=== PATIENT | male | born 1980 | race Caucasian/White ===

== ENCOUNTER 2023-02-15 14:53 | Emergency (ER) | payer OTHER, BC ==
[2023-02-15] MEDS ORDERED: Diphtheria,Pertussis(Acell),Tetanus Vaccine 0.5 ML Syringe IM ONE (16:09)
== END 2023-02-15 16:46 | disposition home or self-care (01) ==
LOC: FB.ED 14:53
DX: S91.311A Laceration without foreign body, right foot, initial encounter (principal); Z23 Encounter for immunization; W23.1XXA Caught, crushed, jammed, or pinched between stationary objects, initial encounter
CPT/HCPCS: 12002; 90471; 90715; 99284-25